=== PATIENT | male | born 1990 | race African-American/Black ===

== ENCOUNTER 2022-12-05 20:56 | Emergency (ER) | payer BC, OTHER | END 2022-12-05 22:42 | disposition home or self-care (01) | LOC: MW.ED 20:56 | DX: S99.922A Unspecified injury of left foot, initial encounter (principal); W22.8XXA Striking against or struck by other objects, initial encounter | CPT/HCPCS: 73620-26-LT; 73620-LT; 99282; 99283 ==

== ENCOUNTER 2023-04-22 00:31 | Emergency (ER) | payer BC, OTHER ==
[2023-04-22] MEDS ORDERED: Octyl 2-Cyanoacrylate 1 g/1 mL 1 APPLIC PEN TOP ONE (00:42)
== END 2023-04-22 01:55 | disposition home or self-care (01) ==
LOC: MW.ED 00:31
DX: S61.012A Laceration without foreign body of left thumb without damage to nail, initial encounter (principal); W26.0XXA Contact with knife, initial encounter
CPT/HCPCS: 12001; 99282; A9270

== ENCOUNTER 2023-08-02 14:40 | Emergency (ER) | payer BC, OTHER ==
[2023-08-02] MEDS: ceFAZolin 2 GM in Sodium Chloride 0.9% 50 ML IV ONE (15:25)
[2023-08-02] MEDS: Diphtheria,Pertussis(Acell),Tetanus Vaccine 0.5 ML Syringe IM ONE (15:25)
[2023-08-02] MEDS: Ibuprofen 600 MG Tab PO ONE (16:10)
== END 2023-08-02 16:50 | disposition home or self-care (01) ==
LOC: MW.ED 14:40
DX: S97.82XA Crushing injury of left foot, initial encounter (principal); Z75.8 Other problems related to medical facilities and other health care; W50.0XXA Accidental hit or strike by another person, initial encounter; Y93.89 Activity, other specified
CPT/HCPCS: 73620; 99283; A9270